=== PATIENT | female | born 1945 | race Caucasian/White ===

== ENCOUNTER 2017-10-09 18:09 | Inpatient (IN) | payer MEDICARE, BC ==
[2017-10-09] MEDS ORDERED: Acetaminophen 325 MG Tab PO ONE (18:36)
[2017-10-09] MEDS ORDERED: Sodium Chloride 0.9% 1,000 ML IV ONE (18:58)
--- NOTE | 2017-10-09 19:12 | EDM.PDOC ---
ED HPI GENERAL MEDICAL PROBLEM - General Chief Complaint: Respiratory Problem Stated Complaint: chills, chest discomfort Time Seen by Provider: 10/09/17 18:57 Source of Information: Reports: Patient History Limitations: Reports: No Limitations - History of Present Illness INITIAL COMMENTS - FREE TEXT/NARRATIVE: Patient is a 72-year-old female who presents to the emergency department this evening with a complaint of fever, cough, overall body aches. Patient states symptoms started yesterday afternoon where she felt cold and hot. Did not take temperature at that time. [place] better this morning but then symptoms started again early this evening. Patient denies chest pain, nausea, vomiting, diarrhea , abdominal pain, dysuria, out of country travel, or headache. Onset: Gradual Onset Date: 10/08/17 Duration: Day(s): Location: Reports: Chest Quality: Reports: Ache Severity: Mild Improves with: Reports: Rest Worsens with: Reports: None Associated Symptoms: Reports: Cough, Fever/Chills, Shortness of Breath. Denies : Chest Pain, Headaches, Nausea/Vomiting - Related Data Allergies Allergy/AdvReac Type Severity Reaction Status Date / Time No Known Allergies Allergy Verified 09/22/13 08:09 Home Meds: Home Meds Aspirin [Ecotrin] 81 mg PO DAILY 09/19/13 [History] Benazepril [Lotensin] 20 mg PO DAILY 09/19/13 [History] Cetirizine [ZyrTEC] 10 mg PO DAILY 09/19/13 [History] Ezetimibe [Zetia] 10 mg PO DAILY 09/19/13 [History] Furosemide [Lasix] 20 mg PO DAILY 09/19/13 [History] Levothyroxine [Sythroid] 100 mcg PO DAILY 09/19/13 [History] Omeprazole 40 mg PO DAILY 09/19/13 [History] Phentermine HCl 37.5 mg PO DAILY 09/19/13 [History] Potassium Chloride 20 meq PO TID 09/19/13 [History] Acetaminophen/Diphenhydramine [Tylenol Pm Ex-Strength Caplet] 1 tab PO BEDTIME 10/09/17 [History] ED ROS GENERAL - Review of Systems Review Of Systems: ROS reveals no pertinent complaints other than HPI. Constitutional: Reports: Fever, Chills, Malaise HEENT: Reports: No Symptoms Respiratory: Reports: Shortness of Breath, Cough Cardiovascular: Reports: No Symptoms Endocrine: Reports: No Symptoms GI/Abdominal: Reports: No Symptoms : Reports: No Symptoms Musculoskeletal: Reports: No Symptoms Skin: Reports: No Symptoms Neurological: Reports: No Symptoms Psychiatric: Reports: No Symptoms Hematologic/Lymphatic: Reports: No Symptoms Immunologic: Reports: No Symptoms ED EXAM, GENERAL - Physical Exam Exam: See Below Exam Limited By: No Limitations General Appearance: Alert, WD/WN, No Apparent Distress Eye Exam: Bilateral Eye: Normal Inspection Nose: Normal Inspection, Normal Mucosa, No Blood Throat/Mouth: Normal Inspection, Normal Oropharynx, No Airway Compromise Head: Atraumatic, Normocephalic Neck: Normal Inspection, Supple, Non-Tender. No: Lymphadenopathy (L), Lymphadenopathy (R) Respiratory/Chest: No Respiratory Distress, Crackles Cardiovascular: Regular Rate, Rhythm, Diastolic Murmur GI/Abdominal: Normal Bowel Sounds, Soft, Non-Tender, No Abnormal Bruit Extremities: Normal Inspection, No Pedal Edema Neurological: Alert, Oriented, Normal Cognition Psychiatric: Normal Affect, Normal Mood Skin Exam: Warm, Dry, Intact, Normal Color, No Rash Course - Orders/Labs/Meds Orders: Active Orders 24 hr Category Date Time Status CXR [Chest 2V] [CR] Stat Exams 10/09/17 18:33 Ordered CBC WITH AUTO DIFF [HEME] Stat Lab 10/09/17 18:34 Ordered CMP [COMPREHENSIVE METABOLIC PN,CMP] [CHEM] Stat Lab 10/09/17 18:34 Ordered CULTURE BLOOD [BC] Stat Lab 10/09/17 18:35 Ordered CULTURE BLOOD [BC] Stat Lab 10/09/17 18:35 Ordered UA W/MICROSCOPIC [URIN] Stat Lab 10/09/17 18:35 Ordered Sodium Chloride 0.9% @ 999 MLS/HR (1000ml) Med 10/09/17 18:58 Ordered Sodium Chloride 0.9% [Normal Saline] 1,000 ml IV .BOLUS Blood Culture x2 Reflex Set [OM.PC] Stat Oth 10/09/17 18:35 Ordered Meds: Medications Discontinued Medications Generic Name Dose Route Start Last Admin Trade Name Freq PRN Reason Stop Dose Admin Acetaminophen 650 mg 10/09/17 18:36 Tylenol PO 10/09/17 18:37 NOW ONE - Radiology Interpretation Free Text/Narrative:: Chest x-ray shows cardiomegaly and perihilar vascular congestion - Re-Assessments/Exams Free Text/Narrative Re-Assessment/Exam: 10/09/17 19:56 Patient's vital signs are stable, patient nontoxic appearing. Discussed case with Dr. Mauricio dunbar, patient will be admitted to her service. Departure - Departure Time of Disposition: 19:58 Disposition: Admitted As Inpatient 67 Condition: Fair Clinical Impression: Pneumonia Qualifiers: Pneumonia type: due to unspecified organism Laterality: unspecified laterality Lung location: unspecified part of lung Qualified Code(s): J18.9 - Pneumonia, unspecified organism UTI (urinary tract infection) Qualifiers: Urinary tract infection type: site unspecified Hematuria presence: without hematuria Qualified Code(s): N39.0 - Urinary tract infection, site not specified - Discharge Information Referrals: Traci Tai MD [Primary Care Provider] - - My Orders Last 24 Hours: My Active Orders 10/09/17 18:33 CXR [Chest 2V] [CR] Stat 10/09/17 18:34 CBC WITH AUTO DIFF [HEME] Stat CMP [COMPREHENSIVE METABOLIC PN,CMP] [CHEM] Stat 10/09/17 18:35 CULTURE BLOOD [BC] Stat CULTURE BLOOD [BC] Stat UA W/MICROSCOPIC [URIN] Stat Blood Culture x2 Reflex Set [OM.PC] Stat 10/09/17 18:58 Sodium Chloride 0.9% @ 999 MLS/HR (1000ml) Sodium Chloride 0.9% [Normal Saline] 1,000 ml IV .BOLUS - Assessment/Plan Last 24 Hours: My Active Orders 10/09/17 18:33 CXR [Chest 2V] [CR] Stat 10/09/17 18:34 CBC WITH AUTO DIFF [HEME] Stat CMP [COMPREHENSIVE METABOLIC PN,CMP] [CHEM] Stat 10/09/17 18:35 CULTURE BLOOD [BC] Stat CULTURE BLOOD [BC] Stat UA W/MICROSCOPIC [URIN] Stat Blood Culture x2 Reflex Set [OM.PC] Stat 10/09/17 18:58 Sodium Chloride 0.9% @ 999 MLS/HR (1000ml) Sodium Chloride 0.9% [Normal Saline] 1,000 ml IV .BOLUS Assessment:: Pneumonia Plan: Admission to Dr. Mauricio dunbar
[2017-10-09] MEDS ORDERED: Azithromycin 500 MG in Sodium Chloride 0.9% 250 ML IV ONE (19:49)
[2017-10-09] MEDS ORDERED: cefTRIAXone 1 GM Vial IVPUSH ONE (19:49)
[2017-10-10] MEDS: Omeprazole 20 MG Cap.CR PO SCH (07:41)
[2017-10-10] MEDS: Acetaminophen 500 MG Tab PO PRN ×2 (08:05→16:29)
--- NOTE | 2017-10-10 08:45 | PCM.HP ---
H&P History of Present Illness - General Date of Service: 10/10/17 Admit Problem/Dx: Admission Diagnosis/Problem Admission Diagnosis/Problem Pneumonia Source of Information: Patient, Old Records, RN History Limitations: Reports: No Limitations - Related Data Allergies/Adverse Reactions: Allergies Allergy/AdvReac Type Severity Reaction Status Date / Time No Known Allergies Allergy Verified 09/22/13 08:09 Home Medications: Home Meds Aspirin [Ecotrin] 81 mg PO DAILY 09/19/13 [History] Benazepril [Lotensin] 20 mg PO DAILY 09/19/13 [History] Cetirizine [ZyrTEC] 10 mg PO DAILY 09/19/13 [History] Ezetimibe [Zetia] 10 mg PO DAILY 09/19/13 [History] Furosemide [Lasix] 20 mg PO DAILY 09/19/13 [History] Levothyroxine [Synthroid] 100 mcg PO DAILY 09/19/13 [History] Omeprazole 40 mg PO DAILY 09/19/13 [History] Phentermine HCl 37.5 mg PO DAILY 09/19/13 [History] Potassium Chloride 20 meq PO TID 09/19/13 [History] Acetaminophen/Diphenhydramine [Tylenol Pm Ex-Strength Caplet] 1 tab PO BEDTIME 10/09/17 [History] cefTRIAXone [Rocephin] 1 gm IM Q24H 3 Days #3 adv 10/12/17 [Rx] Past Medical History HEENT History: Reports: Cataract, Hard of Hearing, Sinusitis Cardiovascular History: Reports: Heart Failure, Hypertension Respiratory History: Reports: Pneumonia, Recurrent Gastrointestinal History: Reports: Cholelithiasis, Hiatal Hernia Genitourinary History: Reports: Renal Calculus, UTI, Recurrent HOG FEEDER History: Reports: Fibroids Neurological History: Reports: CVA, Migraines Endocrine/Metabolic History: Reports: Hypothyroidism, Obesity/BMI 30+ - Infectious Disease History Infectious Disease History: Reports: Chicken Pox, Measles, Mumps - Past Surgical History HEENT Surgical History: Reports: Tonsillectomy Cardiovascular Surgical History: Reports: Varicose Respiratory Surgical History: Reports: None GI Surgical History: Reports: Cholecystectomy, Colonoscopy, [place] Fundoplication Female Surgical History: Reports: Hysterectomy, Other (See Below) Other Female Surgeries/Procedures: bladder repair Neurological Surgical History: Reports: C-Spine, Lumbar Spine Musculoskeletal Surgical History: Reports: Other (See Below) Other Musculoskeletal Surgeries/Procedures:: back surgery Social & Family History - Family History HEENT: Reports: None Cardiac: Reports: None, [place] Respiratory: Reports: None GI: Reports: None, Celiac Disease : Reports: None OBGYN: Reports: None Musculoskeletal: Reports: None Neurological: Reports: Dementia Psychiatric: Reports: None Endocrine/Metabolic: Reports: Diabetes, type II - Tobacco Use Smoking Status *Q: Never Smoker - Caffeine Use Caffeine Use: Reports: Coffee - Recreational Drug Use Recreational Drug Use: No H&P Review of Systems - Review of Systems: Review Of Systems: See Below General: Reports: Fever, Night Sweats, Diaphoresis, Decreased Appetite HEENT: Reports: Ear Pain, Headaches, Sinus Congestion, Sore Throat. Denies: Dysphasia Pulmonary: Reports: Shortness of Breath, Wheezing (yesterday), Pleuritic Chest Pain, Cough. Denies: Sputum Cardiovascular: Reports: Chest Pain. Denies: Dyspnea on Exertion, Edema, Lightheadedness, Blood Pressure Problem Gastrointestinal: Denies: Abdominal Pain, Constipation, Diarrhea, Distension Genitourinary: Denies: Dysuria, Frequency, Burning, Retention, Discharge, Flank Pain Musculoskeletal: Reports: No Symptoms Skin: Reports: No Symptoms Psychiatric: Reports: No Symptoms Neurological: Reports: No Symptoms Exam - Exam Exam: See Below - Vital Signs Vital Signs: Last Vital Signs Temp 100.0 F 10/10/17 06:53 Pulse 87 10/10/17 06:53 Resp 22 H 10/10/17 06:53 BP 131/62 10/10/17 06:53 Pulse Ox 93 L 10/10/17 07:50 Weight: 192 lb 3 oz - Exam Quality Assessment: Supplemental Oxygen General: Alert, Oriented, Mild Distress HEENT: Conjunctiva Clear, EACs Clear, Hearing Intact, Mucosa Moist & [place], Nares Patent Neck: Supple Lungs: Clear to Auscultation, Normal Respiratory Effort Cardiovascular: Regular Rate, Regular Rhythm GI/Abdominal Exam: Normal Bowel Sounds, Soft, Guarding. No: Distended (Female) Exam: Deferred Rectal (Female) Exam: Deferred Back Exam: No: CVA Tenderness (L), CVA Tenderness (R) Extremities: Normal Inspection, Normal Range of Motion, Non-Tender, No Pedal Edema, Normal Capillary Refill Peripheral Pulses: 2+: Radial (L), Radial (R) Skin: Warm, Dry, Intact Neurological: Cranial Nerves Intact, Reflexes Equal Bilateral Neuro Extensive - Mental Status: Alert, Oriented x3, Normal Mood/Affect, Normal Cognition Neuro Extensive - Motor, Sensory, Reflexes: CN II-XII Intact, Normal Gait, Normal Reflexes Psychiatric: Alert, Normal Affect, Normal Mood, Labile Mood - Patient Data Lab Results Last 24 hrs: Laboratory Results - last 24 hr 10/09/17 10/09/17 10/09/17 Range/Units 18:50 18:50 19:30 WBC 17.1 H (5.0-10.0) 10^3/uL RBC 3.64 L (3.80-5.50) 10^6/uL Hgb 11.8 L (12.0-16.0) g/dL Hct 35.9 L (37.0-47.0) % MCV 98.5 H (82.0-92.0) fL MCH 32.3 H (27.0-31.0) pg MCHC 32.8 (32.0-36.0) g/dL RDW 13.3 (11.5-14.5) % Plt Count 494 H (150-300) 10^3/uL MPV 7.8 (7.4-10.4) fL Neut % (Auto) 89.3 H (50.0-70.0) % Lymph % (Auto) 4.4 L (20.0-40.0) % [place] % (Auto) 5.9 (2.0-8.0) % Eos % (Auto) 0.2 L (1.0-3.0) % Baso % (Auto) 0.2 (0.0-1.0) % Neut # (Auto) 15.3 H (2.5-7.0) 10^3/uL Lymph # (Auto) 0.8 L (1.0-4.0) 10^3/uL [place] # (Auto) 1.0 H (0.1-0.8) 10^3/uL Eos # (Auto) 0.0 L (0.1-0.3) 10^3/uL Baso # (Auto) 0.0 (0.0-0.1) 10^3/uL Sodium 138 (136-145) mmol/L Potassium 3.7 (3.3-5.3) mmol/L Chloride 103 (98-115) mmol/L Carbon Dioxide 24.4 (21.0-32.0) mmol/L BUN 28 H (6-25) mg/dL Creatinine 1.17 (0.51-1.17) mg/dL Est Cr Clr Drug Dosing 36.48 mL/min Estimated GFR (MDRD) 46 mL/min Glucose 142 H (70-110) mg/dL Calcium 9.3 (8.7-10.3) mg/dL Total Bilirubin 0.4 (0.2-1.0) mg/dL AST 34 (15-37) U/L ALT 41 (12-78) U/L Alkaline Phosphatase 61 (46-116) IU/L Total Protein 7.3 (6.4-8.2) g/dL Albumin 3.62 (3.00-4.80) g/dL Specimen Type Urinvoid Urine Color Yellow (YELLOW) Urine Appearance Slightly cloudy H (CLEAR) Urine pH 5.0 (5.0-9.0) Ur Specific [place] 1.020 (1.005-1.030) Urine Protein 100 H (NEGATIVE) mg/dL Urine Glucose (UA) Negative (NEGATIVE) mg/dL Urine Ketones Negative (NEGATIVE) mg/dL Urine Occult Blood Small H (NEGATIVE) Urine Nitrite Negative (NEGATIVE) Urine Bilirubin Negative (NEGATIVE) Urine Urobilinogen 0.2 (0.2-1.0) E.U./dL Ur Leukocyte Esterase Small H (NEGATIVE) Urine RBC 5-10 H /HPF Urine WBC 20-30 H /HPF Ur Epithelial Cells Few /LPF Urine Bacteria Many H (NONE TO FEW) /HPF 10/10/17 10/10/17 Range/Units 07:30 07:30 WBC 14.5 H (5.0-10.0) 10^3/uL RBC 3.42 L (3.80-5.50) 10^6/uL Hgb 11.1 L (12.0-16.0) g/dL Hct 33.3 L (37.0-47.0) % MCV 97.4 H (82.0-92.0) fL MCH 32.5 H (27.0-31.0) pg MCHC 33.4 (32.0-36.0) g/dL RDW 13.5 (11.5-14.5) % Plt Count 443 H (150-300) 10^3/uL MPV 7.6 (7.4-10.4) fL Neut % (Auto) 83.4 H (50.0-70.0) % Lymph % (Auto) 9.7 L (20.0-40.0) % [place] % (Auto) 5.8 (2.0-8.0) % Eos % (Auto) 0.3 L (1.0-3.0) % Baso % (Auto) 0.8 (0.0-1.0) % Neut # (Auto) 12.2 H (2.5-7.0) 10^3/uL Lymph # (Auto) 1.4 (1.0-4.0) 10^3/uL [place] # (Auto) 0.8 (0.1-0.8) 10^3/uL Eos # (Auto) 0.0 L (0.1-0.3) 10^3/uL Baso # (Auto) 0.1 (0.0-0.1) 10^3/uL Sodium 141 (136-145) mmol/L Potassium 3.8 (3.3-5.3) mmol/L Chloride 104 (98-115) mmol/L Carbon Dioxide 26.4 (21.0-32.0) mmol/L BUN 19 (6-25) mg/dL Creatinine 0.93 (0.51-1.17) mg/dL Est Cr Clr Drug Dosing 45.90 mL/min Estimated GFR (MDRD) 59 mL/min Glucose 112 H (70-110) mg/dL Calcium 9.0 (8.7-10.3) mg/dL Total Bilirubin (0.2-1.0) mg/dL AST (15-37) U/L ALT (12-78) U/L Alkaline Phosphatase (46-116) IU/L Total Protein (6.4-8.2) g/dL Albumin (3.00-4.80) g/dL Specimen Type Urine Color (YELLOW) Urine Appearance (CLEAR) Urine pH (5.0-9.0) Ur Specific [place] (1.005-1.030) Urine Protein (NEGATIVE) mg/dL Urine Glucose (UA) (NEGATIVE) mg/dL Urine Ketones (NEGATIVE) mg/dL Urine Occult Blood (NEGATIVE) Urine Nitrite (NEGATIVE) Urine Bilirubin (NEGATIVE) Urine Urobilinogen (0.2-1.0) E.U./dL Ur Leukocyte Esterase (NEGATIVE) Urine RBC /HPF Urine WBC /HPF Ur Epithelial Cells /LPF Urine Bacteria (NONE TO FEW) /HPF Result Diagrams: 10/11/17 07:35 10/10/17 07:30 Problem List Initiated/Reviewed/Updated: Yes Orders Last 24hrs: Active Orders 24 hr Category Date Time Status Patient Status [ADT] Routine ADT 10/09/17 19:57 Ordered Activity as Tolerated [RC] .Routine Care 10/10/17 00:06 Active Oxygen Therapy [RC] PRN Care 10/09/17 19:57 Active VTE/DVT Education [RC] PER UNIT ROUTINE Care 10/09/17 19:57 Active Vital Signs [RC] 0300,0700,1100,1500,1900,2300 Care 10/09/17 19:57 Active Heart Healthy Diet [DIET] Diet 10/10/17 Breakfast Active CXR [Chest 2V] [CR] Stat Exams 10/09/17 18:33 Taken CULTURE BLOOD [BC] Stat Lab 10/09/17 18:50 Received CULTURE BLOOD [BC] Stat Lab 10/09/17 19:00 Received CULTURE SPUTUM + SMEAR [RM] Routine Lab 10/09/17 21:20 Ordered UA W/MICROSCOPIC [URIN] Stat Lab 10/09/17 19:30 Ordered Acetaminophen [Tylenol Extra Strength] Med 10/09/17 21:24 Active 500 mg PO Q4H PRN Aspirin [Halfprin] Med 10/10/17 09:00 Active 81 mg PO DAILY Benazepril [Lotensin] Med 10/10/17 09:00 Active 20 mg PO DAILY Cetirizine [ZyrTEC] Med 10/10/17 09:00 Active 10 mg PO DAILY Ezetimibe [Zetia] Med 10/10/17 09:00 Active 10 mg PO DAILY Furosemide [Lasix] Med 10/10/17 09:00 Active 20 mg PO DAILY Levothyroxine [Synthroid] Med 10/10/17 09:00 Active 100 mcg PO DAILY Omeprazole Med 10/10/17 07:00 Active 40 mg PO DAILY@0700 Potassium Chloride [Klor-Con M20] Med 10/10/17 09:00 Active 20 meq PO TID Blood Culture x2 Reflex Set [OM.PC] Stat Oth 10/09/17 18:35 Ordered Resuscitation Status Routine Resus Stat 10/09/17 19:57 Ordered Medication Orders Acetaminophen (Tylenol Extra Strength) 500 mg PO Q4H PRN PRN Reason: Pain Last Admin: 10/10/17 08:05 Dose: 500 mg Aspirin (Halfprin) 81 mg PO DAILY [facility] Benazepril HCl (Lotensin) 20 mg PO DAILY [facility] Cetirizine HCl (Zyrtec) 10 mg PO DAILY [facility] Ezetimibe (Zetia) 10 mg PO DAILY [facility] Furosemide (Lasix) 20 mg PO DAILY [facility] Levothyroxine Sodium (Synthroid) 100 mcg PO DAILY [facility] Omeprazole (Omeprazole) 40 mg PO DAILY@0700 [facility] Last Admin: 10/10/17 07:41 Dose: 40 mg Potassium Chloride (Klor-Con M20) 20 meq PO TID [facility] Assessment/Plan Comment:: HISTORY OF PRESENT ILLNESS This 72-year-old was admitted through the ED due to fever and generalized body aches ongoing cough, fatigue diaphoresis. Patient symptoms started October 09 on and off with diaphoresis, headache low-grade temperature at home seemed to somewhat alleviate however returning symptoms. No NVD Pertinent ED workup/findings, white count 17,000, neutrophilia 90%, electrolytes good UA consistent with UTI, Normal LFTs Temperature 100 CXR; no infiltrate IV fluid bolus Antibiotic given Primary problems, Urinary tract infection, Bronchitis with Rule out pneumonia Neutrophilia Chronic problems, stable, HTN HLD, Venous insufficiency Polymyalgia rheumatica OA Environmental allergies, Reflux esophagitis History of CVA Hypothyroidism, TSH 2.6 Overall plan, hold Lasix, IV D5 and half at 70, Rocephin, Azithromycin, add urine culture, ongoing BC surveillance, CODE STATUS, full code
[2017-10-10] MEDS ORDERED: Furosemide 20 MG Tab PO SCH (09:00)
[2017-10-10] MEDS ORDERED: Levothyroxine 100 MCG Tab PO SCH (09:00)
[2017-10-10] MEDS: Aspirin 81 MG Tab.EC PO SCH (09:58)
[2017-10-10] MEDS: Potassium Chloride 20 MEQ Tab.ER PO SCH ×3 (09:58→21:52)
[2017-10-10] MEDS: Benazepril 10 MG Tab PO SCH (09:58)
[2017-10-10] MEDS: Ezetimibe 10 MG Tab PO SCH (09:59)
[2017-10-10] MEDS: Cetirizine 10 MG Tab PO SCH (09:59)
[2017-10-10] MEDS ORDERED: Phenazopyridine 100 MG Tab PO SCH (14:00)
[2017-10-10] MEDS: Dextrose 5%-0.45% NaCl 1,000 ML IV SCH (16:15)
[2017-10-10] MEDS: cefTRIAXone 1 GM Vial IVPUSH SCH (16:21)
[2017-10-10] MEDS: Azithromycin 250 MG Tab PO SCH (17:21)
[2017-10-11] MEDS: Dextrose 5%-0.45% NaCl 1,000 ML IV SCH (02:48)
[2017-10-11] MEDS: Omeprazole 20 MG Cap.CR PO SCH (06:19)
[2017-10-11] MEDS: Aspirin 81 MG Tab.EC PO SCH (08:53)
[2017-10-11] MEDS: Levothyroxine 100 MCG Tab PO SCH (08:53)
[2017-10-11] MEDS: Ezetimibe 10 MG Tab PO SCH (08:54)
[2017-10-11] MEDS: Potassium Chloride 20 MEQ Tab.ER PO SCH ×3 (08:54→20:39)
[2017-10-11] MEDS: Cetirizine 10 MG Tab PO SCH (08:55)
--- NOTE | 2017-10-11 10:01 | PCM.PN ---
- General Info Date of Service: 10/11/17 Functional Status: Reports: Pain Controlled, Tolerating Diet. Denies: New Symptoms - Review of Systems General: Denies: Fever, Weakness HEENT: Reports: No Symptoms Pulmonary: Reports: No Symptoms Cardiovascular: Reports: No Symptoms Gastrointestinal: Reports: No Symptoms Genitourinary: Denies: Dysuria, Frequency, Burning, Pain, Urgency, Hematuria, Retention, Flank Pain Musculoskeletal: Denies: Back Pain Skin: Reports: No Symptoms Neurological: Reports: No Symptoms Psychiatric: Reports: No Symptoms - Patient Data Vitals - Most Recent: Last Vital Signs Temp 98.4 F 10/11/17 07:00 Pulse 58 L 10/11/17 07:00 Resp 18 10/11/17 07:00 BP 92/47 L 10/11/17 07:00 Pulse Ox 95 10/11/17 08:30 Weight - Most Recent: 192 lb 3 oz I&O - Last 24 Hours: Intake & Output 10/10/17 10/11/17 10/11/17 22:59 06:59 14:59 Intake Total 420 859 Output Total 750 1000 Balance -330 -141 Lab Results Last 24 Hours: Laboratory Results - last 24 hr 10/11/17 Range/Units 07:35 WBC 9.1 (5.0-10.0) 10^3/uL RBC 3.62 L (3.80-5.50) 10^6/uL Hgb 11.7 L (12.0-16.0) g/dL Hct 36.0 L (37.0-47.0) % MCV 99.2 H (82.0-92.0) fL MCH 32.3 H (27.0-31.0) pg MCHC 32.5 (32.0-36.0) g/dL RDW 13.5 (11.5-14.5) % Plt Count 498 H (150-300) 10^3/uL MPV 7.5 (7.4-10.4) fL Neut % (Auto) 60.1 (50.0-70.0) % Lymph % (Auto) 24.9 (20.0-40.0) % [place] % (Auto) 14.0 H (2.0-8.0) % Eos % (Auto) 0.9 L (1.0-3.0) % Baso % (Auto) 0.1 (0.0-1.0) % Neut # (Auto) 5.4 (2.5-7.0) 10^3/uL Lymph # (Auto) 2.3 (1.0-4.0) 10^3/uL [place] # (Auto) 1.3 H (0.1-0.8) 10^3/uL Eos # (Auto) 0.1 (0.1-0.3) 10^3/uL Baso # (Auto) 0.0 (0.0-0.1) 10^3/uL Gilberto Results Last 24 Hours: Microbiology 10/09/17 19:30 Urine Culture - Final Urine, Bladder 10/09/17 19:00 Aerobic Blood Culture - Preliminary Blood - Venous - Lab Draw NO GROWTH AFTER 1 DAY Anaerobic Blood Culture - Preliminary NO GROWTH AFTER 1 DAY 10/09/17 18:50 Aerobic Blood Culture - Preliminary Blood - Venous Anaerobic Blood Culture - Preliminary Med Orders - Current: Current Medications Acetaminophen (Tylenol Extra Strength) 500 mg PO Q4H PRN PRN Reason: Pain Last Admin: 10/10/17 16:29 Dose: 500 mg Aspirin (Halfprin) 81 mg PO DAILY [facility] Last Admin: 10/11/17 08:53 Dose: 81 mg Azithromycin (Zithromax) 250 mg PO DAILY [facility] Last Admin: 10/10/17 17:21 Dose: 250 mg Benazepril HCl (Lotensin) 20 mg PO DAILY [facility] Last Admin: 10/10/17 09:58 Dose: 20 mg Ceftriaxone Sodium (Rocephin) 1 gm IVPUSH Q24H [facility] Last Admin: 10/10/17 16:21 Dose: 1 gm Cetirizine HCl (Zyrtec) 10 mg PO DAILY [facility] Last Admin: 10/11/17 08:55 Dose: 10 mg Ezetimibe (Zetia) 10 mg PO DAILY [facility] Last Admin: 10/11/17 08:54 Dose: 10 mg Furosemide (Lasix) 20 mg PO DAILY [facility] Last Admin: 10/10/17 09:58 Dose: 20 mg Dextrose/Sodium Chloride (Dextrose 5%-1/2 Ns) 1,000 mls @ 70 mls/hr IV ASDIRECTED [facility] Last Admin: 10/11/17 02:48 Dose: 70 mls/hr Levothyroxine Sodium (Synthroid) 100 mcg PO ACBREAKFAST [facility] Last Admin: 10/11/17 08:53 Dose: 100 mcg Omeprazole (Omeprazole) 40 mg PO DAILY@0700 [facility] Last Admin: 10/11/17 06:19 Dose: 40 mg Potassium Chloride (Klor-Con M20) 20 meq PO TID [facility] Last Admin: 10/11/17 08:54 Dose: 20 meq Discontinued Medications Acetaminophen (Tylenol) 650 mg PO NOW ONE Stop: 10/09/17 18:37 Last Admin: 10/09/17 19:10 Dose: 650 mg Ceftriaxone Sodium (Rocephin) 1 gm IVPUSH ONETIME ONE Stop: 10/09/17 19:50 Last Admin: 10/09/17 20:02 Dose: 1 gm Sodium Chloride (Normal Saline) 1,000 mls @ 999 mls/hr IV .BOLUS ONE Stop: 10/09/17 19:58 Last Admin: 10/09/17 19:14 Dose: 999 mls/hr Azithromycin 500 mg/ Sodium (Chloride) 250 mls @ 250 mls/hr IV ONETIME ONE Stop: 10/09/17 20:48 Last Admin: 10/09/17 21:16 Dose: 250 mls/hr Levothyroxine Sodium (Synthroid) 100 mcg PO DAILY [facility] Last Admin: 10/10/17 09:59 Dose: 100 mcg Phenazopyridine HCl (Pyridium) 100 mg PO TID [facility] Stop: 10/11/17 23:59 - Exam Quality Assessment: No: Supplemental Oxygen General: Alert, Oriented Neck: Supple Lungs: Clear to Auscultation, Normal Respiratory Effort Cardiovascular: Regular Rate, Regular Rhythm GI/Abdominal Exam: Soft, Non-Tender, No Distention, Other (Female) Exam: Deferred Back Exam: No: CVA Tenderness (L), CVA Tenderness (R) Neurological: No New Focal Deficit Psy/Mental Status: Alert, Normal Affect, Normal Mood - Problem List Review Problem List Initiated/Reviewed/Updated: Yes - My Orders Last 24 Hours: My Active Orders 10/10/17 11:30 Dextrose 5%-0.45% NaCl [Dextrose 5%-1/2 NS] 1,000 ml IV ASDIRECTED 10/10/17 12:20 MACY Hose [Antiembolic Hose] [OM.PC] Routine 10/10/17 16:00 cefTRIAXone [Rocephin] 1 gm IVPUSH Q24H 10/10/17 18:00 Azithromycin [Zithromax] 250 mg PO DAILY - Plan Plan:: HISTORY OF PRESENT ILLNESS This 72-year-old was admitted through the ED due to fever and generalized body aches ongoing cough, fatigue diaphoresis. Patient symptoms started October 09 on and off with diaphoresis, headache low-grade temperature at home seemed to somewhat alleviate however returning symptoms. No NVD Pertinent ED workup/findings, white count 17,000, neutrophilia 90%, electrolytes good UA consistent with UTI, Normal LFTs Temperature 100 CXR; no infiltrate IV fluid bolus Antibiotic given Update on rounds this morning, patient feels significantly better, much less suprapubic pain, no cough no shortness of breath. Primary problems, Sepsis, without septic shock Urinary tract infection, Neutrophilia, resolved Chronic problems, stable, HTN HLD, Venous insufficiency Polymyalgia rheumatica OA Environmental allergies, Reflux esophagitis History of CVA Hypothyroidism, TSH 2.6 Continue in acute care status, ongoing antibiotics, Gram-positive cocci in aerobic gram-negative rods anaerobic and blood culture. Change IV fluids to saline at 100, clinically doing well, afebrile, feels significantly improved. Very doubtful pulmonary etiology likely urinary etiology, urine culture pending. White count now normal, no longer neutrophilia, qSOFA 1/3 CODE STATUS, full code
[2017-10-11] MEDS: Benazepril 10 MG Tab PO SCH (10:18)
[2017-10-11] MEDS: Sodium Chloride 0.9% 1,000 ML IV SCH ×2 (10:31→20:37)
[2017-10-11] MEDS: Azithromycin 250 MG Tab PO SCH (10:32)
[2017-10-11] MEDS: cefTRIAXone 1 GM Vial IVPUSH SCH (15:26)
[2017-10-12] MEDS: Sodium Chloride 0.9% 1,000 ML IV SCH (06:14)
[2017-10-12] MEDS: Omeprazole 20 MG Cap.CR PO SCH (06:14)
[2017-10-12] MEDS: Levothyroxine 100 MCG Tab PO SCH (07:34)
[2017-10-12] MEDS: Cetirizine 10 MG Tab PO SCH (08:10)
[2017-10-12] MEDS: Aspirin 81 MG Tab.EC PO SCH (08:10)
[2017-10-12] MEDS: Potassium Chloride 20 MEQ Tab.ER PO SCH (08:10)
[2017-10-12] MEDS: Benazepril 10 MG Tab PO SCH (08:10)
[2017-10-12] MEDS: Ezetimibe 10 MG Tab PO SCH (08:10)
[2017-10-12] MEDS ORDERED: cefTRIAXone 1 GM Vial IM SCH (12:00)
--- NOTE | 2017-10-12 14:27 | DISCH ---
The patient was admitted into inpatient on 10/09/2017, discharged from inpatient 10/12/2017. FINAL DIAGNOSES: Sepsis without septic shock; urinary tract infection, likely pyelonephritis. Chronic problems include hypertension, hyperlipidemia, venous insufficiency, polymyalgia rheumatica, osteoarthritis, reflux esophagitis, history of cerebrovascular accident, hypothyroidism, and environmental allergies. HISTORY: This 72-year-old female was admitted to the ED due to fever, generalized body aches, ongoing cough, fatigue, and diaphoresis. She had started her symptoms on October 09, on and off with diaphoresis, headache, low- grade temperatures, seemed to have gotten better for about 24 hours. However, her symptoms returned, so she was admitted for further workup, thought to be initially pneumonia. However, ongoing assessment and culture surveillance determined that it was a urological source of sepsis. HOSPITAL COURSE: Hospital course went well, although she did have sepsis with a low blood pressure. She was resuscitated with fluids. Initial white count was 17,000 with neutrophilia at 90 on discharge, it was reduced to 9.1 white count, and 60% neutrophilia. Sodium and potassium were monitored. She had a slightly elevated BUN, however, this responded well to fluids. She never became hemodynamically unstable, had a mild cough. Microbiology; urine showed E. coli. She did have gram-negative rods popped on her anaerobic culture, and her aerobic culture showed also gram-negative rods on one set of blood cultures only. She was initially started on Rocephin and azithromycin. However, azithromycin was discontinued when I determined it was a urological source. She continued on Rocephin. She did receive D5 half-normal saline at 70. Then I increased it due to slightly low blood pressure. She had qSOFA score of 1/3. PHYSICAL EXAM ON DISCHARGE: VITAL SIGNS: Temperature 98.9, T-max in the hospital was 101.6 that was on admission. Blood pressure was 124/65, respiratory rate 18, and O2 sats 94% to 97% on room air. LUNGS: Her lungs were clear to auscultation. CV: Regular rate and rhythm. GI: Nontender on discharge. She did have some slight suprapubic pain early on admission. I held her Lasix and her hypertension medications and her potassium on admission. Those were restarted on discharge. MEDICATION CHANGES OR ADJUSTMENTS: She can continue on all her other home medications, however, Rocephin 1 g IM. She will receive these daily over the next three days. CONDITION TREATMENT AND FINAL DISPOSITION: The patient will be discharged from the hospital. She desires to go home. She is hemodynamically stable. She is afebrile. She has no longer neutropenia. Her white count is normal. No fever. She feels much better. Hemodynamically stable. She will continue to have blood pressure and temperature and complete vital signs daily for next three days. She will continue with Rocephin daily. I will see her back next Sunday. She is to report any vomiting, any fever, any dizziness, or any abdominal pain. I will continue to monitor any susceptibility on labs. I will likely repeat UA next week when I see her. She is to continue with her incentive spirometer. /[id number]/MODL
== END 2017-10-12 12:25 | disposition home or self-care (01) | DRG 872 ==
LOC: KA.ED 18:09 → KA.MS 19:57
PROVIDERS: ADMIT Physician Assistant Surgical; ATTEND Family Medicine
DX: J18.9 Pneumonia, unspecified organism (principal); A41.9 Sepsis, unspecified organism; Z79.899 Other long term (current) drug therapy; Z79.82 Long term (current) use of aspirin; N39.0 Urinary tract infection, site not specified; N12 Tubulo-interstitial nephritis, not specified as acute or chronic; B96.20 Unspecified Escherichia coli [E. coli] as the cause of diseases classified elsewhere; I10 Essential (primary) hypertension; E78.5 Hyperlipidemia, unspecified; I87.2 Venous insufficiency (chronic) (peripheral); M35.3 Polymyalgia rheumatica; M19.90 Unspecified osteoarthritis, unspecified site; K21.0 Gastro-esophageal reflux disease with esophagitis; E03.9 Hypothyroidism, unspecified; I50.9 Heart failure, unspecified; Z86.73 Personal history of transient ischemic attack (TIA), and cerebral infarction without residual deficits
CPT/HCPCS: 36415; 71046; 80048; 80053; 81001; 85025; 87040; 87077; 87086; 87088; 87186; 96360; 99284; 99285; A9270-GY; J0456; J0696; J7030; J7042; J7050

== ENCOUNTER 2021-08-10 17:55 | Emergency (ER) | payer MEDICARE, BC ==
[2021-08-10] MEDS ORDERED: Sodium Chloride 0.9% 500 ML IV SCH (19:00)
[2021-08-10] MEDS ORDERED: Sodium Chloride 0.9% 10 ML Syringe FLUSH PRN (19:00)
[2021-08-10] MEDS: ALTEPLASE IV ONE (19:13)
== END 2021-08-10 19:28 ==
LOC: KA.ED 17:55
DX: I63.9 Cerebral infarction, unspecified (principal); I21.4 Non-ST elevation (NSTEMI) myocardial infarction; I11.0 Hypertensive heart disease with heart failure; I50.9 Heart failure, unspecified; Z86.73 Personal history of transient ischemic attack (TIA), and cerebral infarction without residual deficits; E66.9 Obesity, unspecified; Z68.35 Body mass index [BMI] 35.0-35.9, adult; Z79.82 Long term (current) use of aspirin; Z79.899 Other long term (current) drug therapy; W18.09XA Striking against other object with subsequent fall, initial encounter
CPT/HCPCS: 36415; 70450; 70486; 72125; 80048; 82550; 82947; 83605; 84484; 85025; 96365; 99284; 99285-25; J2997

== ENCOUNTER 2023-05-07 14:50 | Observation (INO) | payer MEDICARE, BC ==
[2023-05-07] MEDS ORDERED: Sodium Chloride 0.9% 10 ML Syringe FLUSH PRN (15:11)
[2023-05-07 15:23] LABS: BASOPHILS ABSOLUTE AUTO 0.04 10^3/uL (0.00-0.10); BASOPHILS PERCENT AUTO 0.3 % (0.0-1.0); EOSINOPHILS PERCENT AUTO 1.6 % (1.0-3.0); HEMATOCRIT 40.3 % (37.0-47.0); HEMOGLOBIN 13.6 g/dL (12.0-16.0); IMMATURE GRAN ABSOLUTE AUTO 0.02 10^3/uL (0.00-0.50); IMMATURE GRAN PERCENT AUTO 0.2 % (0.0-5.0); LYMPHOCYTES ABSOLUTE AUTO 3.18 10^3/uL (1.00-4.00); LYMPHOCYTES PERCENT AUTO 26.1 % (20.0-40.0); MEAN CORPUSCULAR HGB CONC 33.7 g/dL (32.0-36.0); MEAN CORPUSCULAR VOLUME 97.8 fL (82.0-92.0); MEAN PLATELET VOLUME 9.6 fL (7.4-10.4); MONOCYTES ABSOLUTE AUTO 0.85 10^3/uL (0.10-0.80); NEUTROPHILS ABSOLUTE AUTO 7.91 10^3/uL (2.50-7.00); NEUTROPHILS PERCENT AUTO 64.8 % (50.0-70.0); PLATELET COUNT,PLT 411 10^3/uL (150-400); RED BLOOD CELL COUNT 4.12 10^6/uL (3.80-5.50); RED CELL DISTRIBUTION WIDTH 12.8 % (11.5-14.5)
[2023-05-07 15:41] LABS: ALANINE AMINOTRANSFERASE,ALT 24 U/L (14-63); ALBUMIN 3.88 g/dL (3.40-5.00); ALKALINE PHOSPHATASE 92 U/L (46-116); ANION GAP 16.2 mmol/L (5-15); ASPARTATE AMNIOTRANSFERASE,AST 20 U/L (15-37); BILIRUBIN TOTAL 0.3 mg/dL (0.2-1.0); BLOOD UREA NITROGEN,BUN 26 mg/dL (7-18); CALCIUM 9.2 mg/dL (8.7-10.3); CARBON DIOXIDE,CO2 23.6 mmol/L (21.0-32.0); CHLORIDE,CL 102 mmol/L (98-107); CREATININE 0.69 mg/dL (0.51-1.17); GLUCOSE RANDOM 150 mg/dL (70-140); POTASSIUM,K 3.8 mmol/L (3.5-5.1); PROTEIN TOTAL,TP 7.3 g/dL (6.4-8.2); SODIUM,NA 138 mmol/L (136-145)
[2023-05-07 15:42] LABS: ESTIMATED GFR 90 mL/min (>=60)
[2023-05-07 15:55] LABS: APPEARANCE,URINE CLEAR (CLEAR); BILIRUBIN,URINE NEGATIVE (NEGATIVE); COLOR,URINE LIGHT YELLOW (YELLOW); GLUCOSE,URINE NEGATIVE (NEGATIVE); KETONES,URINE NEGATIVE (NEGATIVE); LEUKOCYTE ESTERASE,URINE SMALL (NEGATIVE); NITRITE,URINE NEGATIVE (NEGATIVE); OCCULT BLOOD,URINE NEGATIVE (NEGATIVE); PH,URINE 5.5 (5.0-9.0); PROTEIN,URINE NEGATIVE (NEGATIVE); UROBILINOGEN,URINE 0.2 E.U./dL (0.2-1.0)
[2023-05-07 16:00] LABS: INR 0.9 (0.9-1.1); PROTHROMBIN TIME 9.1 SEC (9.2-11.2); PTT,PARTIAL THROMBOPLSTIN TIME 25.6 SEC (22.8-31.4)
[2023-05-07 16:01] LABS: BACTERIA,URINE RARE /HPF (NONE TO FEW); EPITHELIAL CELLS,URINE RARE /LPF; RBC,URINE 0-5 /HPF (0-5)
[2023-05-07] MEDS ORDERED: Aspirin 81 MG Tab.Chew PO ONE (16:10)
[2023-05-07 16:14] LABS: INFLUENZA A NAA NEGATIVE (NEGATIVE); INFLUENZA B NAA NEGATIVE (NEGATIVE); RESPIRATORY SYNCYTIAL VIR NAA NEGATIVE (NEGATIVE)
[2023-05-07 16:15] LABS: CORONAVIRUS COVID-19 NAA NEGATIVE (NEGATIVE)
[2023-05-07] MEDS: Nitroglycerin 0.4 MG Tab.SL SL PRN ×2 (16:21→16:39)
[2023-05-07] MEDS ORDERED: Iopamidol 755 Mg/ML 100 ML Bottle IV ONE (16:44)
[2023-05-07] MEDS ORDERED: Sodium Chloride 0.9% 100 ML IV SCH (16:45)
[2023-05-07] MEDS ORDERED: Ondansetron 4 MG Tab.DIS PO PRN (20:15)
[2023-05-07] MEDS ORDERED: Glucagon,Human Recombinant 1 MG Vial IM PRN (20:58)
[2023-05-07] MEDS ORDERED: 50% Dextrose in Water 50 ML Syringe IVPUSH PRN (20:58)
[2023-05-07] MEDS: Losartan 50 MG Tab PO SCH (22:08)
[2023-05-07] MEDS: Acetaminophen 325 MG Tab PO PRN (22:13)
[2023-05-07 22:15] LABS: HEMOGLOBIN A1C 7.9 % (4.3-5.7)
[2023-05-08] MEDS: Levothyroxine 100 MCG Tab PO SCH (06:32)
[2023-05-08 07:06] LABS: BASOPHILS ABSOLUTE AUTO 0.02 10^3/uL (0.00-0.10); BASOPHILS PERCENT AUTO 0.2 % (0.0-1.0); EOSINOPHILS ABSOLUTE AUTO 0.15 10^3/uL (0.10-0.30); EOSINOPHILS PERCENT AUTO 1.6 % (1.0-3.0); HEMATOCRIT 41.1 % (37.0-47.0); HEMOGLOBIN 13.3 g/dL (12.0-16.0); IMMATURE GRAN ABSOLUTE AUTO 0.01 10^3/uL (0.00-0.50); IMMATURE GRAN PERCENT AUTO 0.1 % (0.0-5.0); LYMPHOCYTES ABSOLUTE AUTO 2.34 10^3/uL (1.00-4.00); LYMPHOCYTES PERCENT AUTO 25.1 % (20.0-40.0); MEAN CORPUSCULAR HGB CONC 32.4 g/dL (32.0-36.0); MEAN PLATELET VOLUME 9.3 fL (7.4-10.4); MONOCYTES ABSOLUTE AUTO 0.72 10^3/uL (0.10-0.80); MONOCYTES PERCENT AUTO 7.7 % (2.0-8.0); NEUTROPHILS PERCENT AUTO 65.3 % (50.0-70.0); PLATELET COUNT,PLT 378 10^3/uL (150-400); RED BLOOD CELL COUNT 4.15 10^6/uL (3.80-5.50); RED CELL DISTRIBUTION WIDTH 12.9 % (11.5-14.5); WHITE BLOOD CELL COUNT,WBC 9.34 10^3/uL (5.00-10.00)
[2023-05-08 07:31] LABS: ANION GAP 12.4 mmol/L (5-15); CALCIUM 8.9 mg/dL (8.7-10.3); CARBON DIOXIDE,CO2 27.8 mmol/L (21.0-32.0); CREATININE 0.72 mg/dL (0.51-1.17); EST CRCL DRUG DOSING (CG) 52.57 mL/min; POTASSIUM,K 4.2 mmol/L (3.5-5.1)
[2023-05-08] MEDS: Insulin Lispro 100 Unit/ML 3 ML KwikPen SUBCUT SCH ×3 (07:40→18:03)
[2023-05-08] MEDS: Omeprazole 20 MG Cap.CR PO SCH (09:27)
[2023-05-08] MEDS: Rosuvastatin 10 MG Tab PO SCH (09:28)
[2023-05-08] MEDS: Ezetimibe 10 MG Tab PO SCH (09:28)
[2023-05-08] MEDS: Losartan 50 MG Tab PO SCH ×2 (09:28→20:47)
[2023-05-08] MEDS: Aspirin 81 MG Tab.EC PO SCH (09:28)
[2023-05-08] MEDS ORDERED: Furosemide 40 MG/4 ML VIAL IVPUSH ONE (09:49)
[2023-05-08] MEDS: Lidocaine 5% 700 MG Patch TRDERM SCH (10:41)
[2023-05-08] MEDS: Acetaminophen/HYDROcodone 325-10 MG Tab PO PRN ×2 (18:02→23:16)
[2023-05-08] MEDS: Acetaminophen 325 MG Tab PO PRN (20:47)
[2023-05-09] MEDS: Acetaminophen/HYDROcodone 325-10 MG Tab PO PRN (06:40)
[2023-05-09] MEDS: Levothyroxine 100 MCG Tab PO SCH (06:40)
[2023-05-09 07:11] LABS: BASOPHILS ABSOLUTE AUTO 0.03 10^3/uL (0.00-0.10); BASOPHILS PERCENT AUTO 0.3 % (0.0-1.0); EOSINOPHILS ABSOLUTE AUTO 0.13 10^3/uL (0.10-0.30); EOSINOPHILS PERCENT AUTO 1.2 % (1.0-3.0); HEMATOCRIT 41.2 % (37.0-47.0); HEMOGLOBIN 13.5 g/dL (12.0-16.0); IMMATURE GRAN ABSOLUTE AUTO 0.01 10^3/uL (0.00-0.50); IMMATURE GRAN PERCENT AUTO 0.1 % (0.0-5.0); LYMPHOCYTES ABSOLUTE AUTO 2.64 10^3/uL (1.00-4.00); LYMPHOCYTES PERCENT AUTO 23.8 % (20.0-40.0); MEAN CORPUSCULAR HEMOGLOBIN 32.5 pg (27.0-31.0); MEAN CORPUSCULAR HGB CONC 32.8 g/dL (32.0-36.0); MEAN PLATELET VOLUME 9.2 fL (7.4-10.4); MONOCYTES ABSOLUTE AUTO 0.92 10^3/uL (0.10-0.80); MONOCYTES PERCENT AUTO 8.3 % (2.0-8.0); NEUTROPHILS ABSOLUTE AUTO 7.34 10^3/uL (2.50-7.00); NEUTROPHILS PERCENT AUTO 66.3 % (50.0-70.0); PLATELET COUNT,PLT 395 10^3/uL (150-400); RED BLOOD CELL COUNT 4.16 10^6/uL (3.80-5.50); WHITE BLOOD CELL COUNT,WBC 11.07 10^3/uL (5.00-10.00)
[2023-05-09 07:34] LABS: ALBUMIN 3.54 g/dL (3.40-5.00); ANION GAP 11.1 mmol/L (5-15); BILIRUBIN TOTAL 0.6 mg/dL (0.2-1.0); CALCIUM 9.1 mg/dL (8.7-10.3); CARBON DIOXIDE,CO2 29.1 mmol/L (21.0-32.0); CREATININE 0.78 mg/dL (0.51-1.17); EST CRCL DRUG DOSING (CG) 48.53 mL/min; POTASSIUM,K 4.2 mmol/L (3.5-5.1); PROTEIN TOTAL,TP 6.7 g/dL (6.4-8.2)
[2023-05-09] MEDS: Insulin Lispro 100 Unit/ML 3 ML KwikPen SUBCUT SCH (08:01)
[2023-05-09] MEDS: Ezetimibe 10 MG Tab PO SCH (09:17)
[2023-05-09] MEDS: Omeprazole 20 MG Cap.CR PO SCH (09:17)
[2023-05-09] MEDS: Losartan 50 MG Tab PO SCH (09:18)
[2023-05-09] MEDS: Rosuvastatin 10 MG Tab PO SCH (09:18)
[2023-05-09] MEDS: Aspirin 81 MG Tab.EC PO SCH (09:18)
[2023-05-09] MEDS: Lidocaine 5% 700 MG Patch TRDERM SCH (09:59)
== END 2023-05-09 11:18 | disposition home or self-care (01) ==
LOC: KA.ED 14:50 → KA.MS 18:38 → UNDOADMOB 19:17
PROVIDERS: ADMIT Nurse Practitioner Family; ATTEND Family Medicine
DX: R07.89 Other chest pain (principal); R10.84 Generalized abdominal pain; J96.01 Acute respiratory failure with hypoxia; J81.0 Acute pulmonary edema; I10 Essential (primary) hypertension; E03.9 Hypothyroidism, unspecified; E78.5 Hyperlipidemia, unspecified; E66.9 Obesity, unspecified; Z20.822 Contact with and (suspected) exposure to COVID-19; Z79.82 Long term (current) use of aspirin; Z79.899 Other long term (current) drug therapy; Z79.890 Hormone replacement therapy
CPT/HCPCS: 0241U; 36415; 70450; 71045; 71275; 73030-RT; 74176; 80048; 80053; 81001; 82947; 83036; 83690; 83880; 84484; 85025; 85379; 85610; 85730; 87086; 87088; 87186; 93005; 93010; 96374; 99284; 99285; A9270-GY; G0378; J1815-GY; J1940; J3490; Q3014; Q9967